=== PATIENT | female | born 1985 | race Caucasian/White ===

== ENCOUNTER 2017-10-08 12:12 | Emergency (ER) | payer MEDICAID ==
[~2017-10-08] VITALS: Ht 167.6 cm; Wt 81.6 kg
[~2017-10-08 12:12] MED LIST: ALB0.5V INH; BSP5T PO; CITA20TA4 PO; DCS100C PO; HYDR-3720 PO; IBP800T PO; METR500T PO; NAPR-243 PO; [UNRECOGNIZED DRUG - OTHER]
[2017-10-08] MEDS ORDERED: KETOROLAC 30 MG/ML VIAL IVP STA (13:38)
[2017-10-08] MEDS ORDERED: NS (IVPB) 250 ML IV ONE (13:38)
[2017-10-08 13:50] LABS: BILIRUBIN,URINE NEGATIVE (NEGATIVE); CLARITY,URINE SLIGHTLY CLOUDY; COLOR,URINE YELLOW; GLUCOSE, URINE (UA) NEGATIVE (NEGATIVE); KETONES,URINE NEGATIVE (NEGATIVE); LEUKOCYTE ESTERASE ,URINE 3+ (NEGATIVE); NITRITE,URINE POSITIVE (NEGATIVE); PH,URINE 6.5 (5-9); PROTEIN,URINE 2+ (NEGATIVE); UROBILINOGEN,URINE 1 MG/DL (NORMAL)
[2017-10-08 14:05] LABS: BACTERIA,URINE LARGE /HPF; WBC,URINE TNTC /HPF
[2017-10-08] MEDS ORDERED: NS IV 1000 ML 1,000 ML IV ONE (14:06)
[2017-10-08 14:22] LABS: BASOPHILS % (AUTO) 0 % (0-10); EOSINOPHILS # (AUTO) 0.2 10^3/uL (0.0-0.3); EOSINOPHILS % (AUTO) 2 % (0-10); HEMATOCRIT 35 % (35-52); HEMOGLOBIN 11.9 G/DL (11.5-16.0); LYMPHOCYTES # (AUTO) 1.8 X 10^3 (1.0-4.0); LYMPHOCYTES % (AUTO) 15 % (12-44); MEAN CORPUSCULAR HEMOGLOBIN 30 PG (25-34); MEAN CORPUSCULAR HGB CONC 34 G/DL (32-36); MEAN CORPUSCULAR VOLUME 88 FL (80-99); MEAN PLATELET VOLUME 9.2 FL (7.4-10.4); MONOCYTES # (AUTO) 1.4 X 10^3 (0.0-1.0); MONOCYTES % (AUTO) 12 % (0-12); NEUTROPHILS # (AUTO) 8.4 X 10^3 (1.8-7.8); NEUTROPHILS % (AUTO) 71 % (42-75); PLATELET COUNT 332 10^3/uL (130-400); RED BLOOD COUNT 3.97 10^6/uL (4.35-5.85); RED CELL DISTRIBUTION WIDTH 12.9 % (10.0-14.5); WHITE BLOOD COUNT 11.8 10^3/uL (4.3-11.0)
--- NOTE | 2017-10-08 14:33 | Diagnostic Imaging Report ---
INDICATION: Left flank pain Comparison: None Findings: 2 AP supine views of the abdomen are obtained. There is moderate amount of stool in the colon. The bowel gas pattern is otherwise unremarkable. No urinary tract calcifications are suspected. A couple of faint calcifications right pelvis are likely phleboliths. Osseous structures unremarkable. Impression: No acute abnormality is suspected. Dictated by: Dictated on workstation # [id number]
[2017-10-08 14:41] LABS: ALANINE AMINOTRANSFERASE 16 U/L (0-55); ALBUMIN 3.8 GM/DL (3.2-4.5); ALKALINE PHOSPHATASE 73 U/L (40-136); BILIRUBIN,TOTAL 0.4 MG/DL (0.1-1.0); BUN/CREATININE RATIO 11; CALCIUM 9.1 MG/DL (8.5-10.1); CARBON DIOXIDE 26 MMOL/L (21-32); CHLORIDE 103 MMOL/L (98-107); CREATININE SERUM 0.72 MG/DL (0.60-1.30); GFR ESTIMATED > 60; GLUCOSE 94 MG/DL (70-105); POTASSIUM 3.3 MMOL/L (3.6-5.0); SODIUM 138 MMOL/L (135-145); TOTAL PROTEIN 7.1 GM/DL (6.4-8.2)
[2017-10-08] MEDS ORDERED: cefTRIAXone INJECTION 2,000 MG in NS (IVPB) 100 ML IV ONE (14:45)
--- NOTE | 2017-10-08 14:49 | ED GU-Female ---
General Chief Complaint: Back Problems Stated Complaint: L SIDE PAIN Nursing Triage Note: PT CO OF L SIDE AND BACK PAIN X 3 DAYS PAIN GOES FROM 5-10 AT TIMES. Nursing Sepsis Screen: No Definite Risk History of Present Illness Date Seen by Provider: Oct 08, 2017 Time Seen by Provider: 13:30 Initial Comments 32-year-old female presents for left flank and lower abdomen pain. She reports dysuria and polyuria. She's had a history of UTIs, but the last one was approximately 2-3 years ago. She denies any blood in her urine. She has been drinking cranberry juice and increasing her water intake. She denies any nausea or vomiting. She has had no ibuprofen or Tylenol since symptoms began, she has not taken [id number] UTI medications. Timing/Duration: getting worse Severity/Quality: moderate Location: LLQ Radiation: suprapubic, left flank Modifying Factors: Improves With Resting, Improves With Urinating Associated Symptoms: dysuria, No fever/chills, No loss of bladder control, lower back pain, No nausea/vomiting (left), No nocturia, polyuria, urinary frequency Allergies and Home Medications Allergies Coded Allergies: NKANo Known Allergies (Unverified Allergy, Mild, 11/07/08) Home Medications Buspirone Hcl 5 Mg Tablet, 5 MG PO TID, (Reported) Ciprofloxacin HCl 500 Mg Tablet, 500 MG PO BID Prescribed by: KIM MO on 10/08/17 1540 Citalopram Hydrobromide 20 Mg Tab, 20 MG PO DAILY, (Reported) Docusate Sodium 100 Mg Capsule, 1 CAP PO DAILY PRN for CONSTIPATION Prescribed by: DOMINGO HOYOS on 01/19/14 0900 Hydrocodone Bit/Acetaminophen 1 Each Tablet, 1-2 TAB PO Q3H PRN for PAIN Prescribed by: DOMINGO HOYOS on 01/19/14 0900 Ibuprofen 800 Mg Tablet, 1 TAB PO Q6HR PRN for PAIN Prescribed by: DOMINGO HOYOS on 01/19/14 0900 Tramadol HCl 50 Mg Tablet, 50 MG PO Q8H Prescribed by: KIM MO on 10/08/17 1540 Patient Home Medication List Home Medication List Reviewed: Yes Constitutional: no symptoms reported, see HPI Gastrointestinal: LLQ, see HPI Genitourinary: see HPI, burning, dysuria, frequency, pain, urgency Musculoskeletal: see HPI, back pain (left flank) All Other Systemes Reviewed Negative Unless Noted: Yes Past Fsmozbv-Crvsjb-Xiuouq Hx Patient Social History Alcohol Use: Denies Use Recreational Drug Use: Yes (THC USED A WEEK AGO) Smoking Status: Never a Smoker Recent Foreign Travel: No Contact w/Someone Who Travel: No Recent Infectious Disease Expo: No Recent Hopitalizations: No Physical Abuse: No Sexual Abuse: No Surgeries History of Surgeries: Yes (2 D&C'S, DENTAL SURGERY) Surgeries: Hysterectomy Respiratory History of Respiratory Disorde: Yes Respiratory Disorders: Asthma Cardiovascular History of Cardiac Disorders: No Neurological History of Neurological Disord: No Reproductive System Hx Reproductive Disorders: Yes (MENORRHAGIA, PELVIC PAIN, UTERINE PROLAPSE) Female Reproductive Disorders: Endometriosis, Ovarian Cyst, Polycystic Ovarian Dis [employer] History: Tubal Ligation Gastrointestinal History of Gastrointestinal Di: No Musculoskeletal History of Musculoskeletal Dis: No Endocrine History of Endocrine Disorders: No Cancer History of Cancer: No Psychosocial History of Psychiatric Problem: Yes Behavioral Health Disorders: Personality Disorder Suicide Risk Score: 0 Integumentary History of Skin or Integumenta: No Blood Transfusions History of Blood Disorders: No Reviewed Nursing Assessment Reviewed/Agree w Nursing PMH: Yes Family Medical History Family Medial History: Patient reports no known family medical history. Physical Exam Vital Signs Vital Signs - First Documented 10/08/17 13:24 Temp 98.1 Pulse 78 Resp 18 B/P (MAP) 118/97 (104) Pulse Ox 100 Capillary Refill : Less Than 3 Seconds General Appearance: WD/WN, no apparent distress HEENT: PERRL/EOMI, normal ENT inspection, TMs normal, pharynx normal Neck: non-tender, full range of motion, supple, normal inspection Cardiovascular: normal peripheral pulses, regular rate, rhythm Respiratory: chest non-tender, lungs clear, normal breath sounds Gastrointestinal: normal bowel sounds, soft, No guarding, No rebound, tenderness (left lower quadrant) Back: normal inspection, no vertebral tenderness, CVA tenderness (L) Neurologic/Psychiatric: no motor/sensory deficits, alert, normal mood/affect, oriented x 3 Skin: normal color, warm/dry Progress/Results/Core Measures Suspected Sepsis Recent Fever Within 48 Hours: No Infection Criteria Present: None New/Unexplained Altered Menta: No Sepsis Screen: No Definite Risk Sepsis Diagnosis: SIRS Temperature:98.1 Pulse: 78 Respiratory Rate: 18 Laboratory Tests 10/08/17 14:10: White Blood Count 11.8H Blood Pressure 118 /97 Mean: 104 Laboratory Tests 10/08/17 14:10: Creatinine 0.72, Platelet Count 332, Total Bilirubin 0.4 Results/Orders Lab Results Laboratory Tests Test 10/08/17 13:24 10/08/17 14:10 Range/Units Urine Color YELLOW Urine Clarity SLIGHTLY CLOUDY Urine pH 6.5 5-9 Urine Specific [place] 1.010 L 1.016-1.022 Urine Protein 2+ H NEGATIVE Urine Glucose (UA) NEGATIVE NEGATIVE Urine Ketones NEGATIVE NEGATIVE Urine Nitrite POSITIVE H NEGATIVE Urine Bilirubin NEGATIVE NEGATIVE Urine Urobilinogen 1 NORMAL MG/DL Urine Leukocyte Esterase 3+ H NEGATIVE Urine RBC (Auto) 5+ H NEGATIVE Urine RBC NONE /HPF Urine WBC TNTC H /HPF Urine Squamous Epithelial Cells 5-10 /HPF Urine Crystals NONE /LPF Urine Bacteria LARGE H /HPF Urine Casts NONE /LPF Urine Mucus NEGATIVE /LPF Urine Culture Indicated YES White Blood Count 11.8 H 4.3-11.0 10^3/uL Red Blood Count 3.97 L 4.35-5.85 10^6/uL Hemoglobin 11.9 11.5-16.0 G/DL Hematocrit 35 35-52 % Mean Corpuscular Volume 88 80-99 FL Mean Corpuscular Hemoglobin 30 25-34 PG Mean Corpuscular Hemoglobin Concent 34 32-36 G/DL Red Cell Distribution Width 12.9 10.0-14.5 % Platelet Count 332 130-400 10^3/uL Mean Platelet Volume 9.2 7.4-10.4 FL Neutrophils (%) (Auto) 71 42-75 % Lymphocytes (%) (Auto) 15 12-44 % Monocytes (%) (Auto) 12 0-12 % Eosinophils (%) (Auto) 2 0-10 % Basophils (%) (Auto) 0 0-10 % Neutrophils # (Auto) 8.4 H 1.8-7.8 X 10^3 Lymphocytes # (Auto) 1.8 1.0-4.0 X 10^3 Monocytes # (Auto) 1.4 H 0.0-1.0 X 10^3 Eosinophils # (Auto) 0.2 0.0-0.3 10^3/uL Basophils # (Auto) 0.0 0.0-0.1 10^3/uL Sodium Level 138 135-145 MMOL/L Potassium Level 3.3 L 3.6-5.0 MMOL/L Chloride Level 103 98-107 MMOL/L Carbon Dioxide Level 26 21-32 MMOL/L Anion Gap 9 5-14 MMOL/L Blood Urea Nitrogen 8 7-18 MG/DL Creatinine 0.72 0.60-1.30 MG/DL Estimat Glomerular Filtration Rate > 60 BUN/Creatinine Ratio 11 Glucose Level 94 70-105 MG/DL Calcium Level 9.1 8.5-10.1 MG/DL Total Bilirubin 0.4 0.1-1.0 MG/DL Aspartate Amino Transf (AST/SGOT) 11 5-34 U/L Alanine Aminotransferase (ALT/SGPT) 16 0-55 U/L Alkaline Phosphatase 73 40-136 U/L Total Protein 7.1 6.4-8.2 GM/DL Albumin 3.8 3.2-4.5 GM/DL My Orders Orders - KIM MO Cbc With Automated Diff (10/08/17 13:38) Comprehensive Metabolic Panel (10/08/17 13:38) Ua Culture If Indicated (10/08/17 13:38) Saline Lock/Iv-Start (10/08/17 13:38) Ns (Ivpb) (Sodium Chloride 0.9%) (10/08/17 13:38) Ketorolac Injection (Toradol Injection) (10/08/17 13:38) Abdomen/Kub 1view (10/08/17 14:00) Urine Culture (10/08/17 13:24) Saline Lock/Iv-Start (10/08/17 14:06) Ns Iv 1000 Ml (Sodium Chloride 0.9%) (10/08/17 14:06) Ceftriaxone Injection (Rocephin Injectio (10/08/17 14:45) Medications Given in ED Current Medications Medications Dose Ordered Sig/Marcela Route Start Time Stop Time Status Last Admin Dose Admin Ceftriaxone Sodium 2000 mg/ Sodium Chloride 100 ml @ 200 mls/hr ONCE ONCE IV 10/08/17 14:45 10/08/17 15:14 DC 10/08/17 15:01 200 MLS/HR Sodium Chloride 1,000 ml @ 0 mls/hr Q0M ONCE IV 10/08/17 14:06 10/08/17 14:07 DC 10/08/17 14:10 1,000 MLS/HR Vital Signs/I&O Vital Sign - Last 12Hours 10/08/17 13:24 Temp 98.1 Pulse 78 Resp 18 B/P (MAP) 118/97 (104) Pulse Ox 100 Capillary Refill : Less Than 3 Seconds Blood Pressure Mean: 104 Diagnostic Imaging Diagonstic Imaging: Xray Plain Films/CT/US/NM/MRI: abdomen Comments NAME: BELEM RESENDIZ [facility] REC#: [id number] PT STATUS: REG ER : 1985 PHYSICIAN: KIM MO ADMIT DATE: 10/08/17/ER Draft Date of Exam:10/08/17 ABDOMEN/KUB 1VIEW INDICATION: Left flank pain Comparison: None Findings: 2 AP supine views of the abdomen are obtained. There is moderate amount of stool in the colon. The bowel gas pattern is otherwise unremarkable. No urinary tract calcifications are suspected. A couple of faint calcifications right pelvis are likely phleboliths. Osseous structures unremarkable. Impression: No acute abnormality is suspected. Dictated on workstation # [id number] Dict: 10/08/17 1427 Trans: 10/08/17 1432 BANNER [id number] Interpreted by: KAYLEIGH SON DO Electronically signed by: Departure Impression Impression: Primary Impression: Urinary tract infection Qualified Codes: N30.01 - Acute cystitis with hematuria Disposition: HOME, SELF-CARE Condition: Improved Departure-Patient Inst. Decision time for Depature: 15:30 Referrals: NO,LOCAL PHYSICIAN (PCP/Family) Primary Care Physician Patient Instructions: Urinary Tract Infection, Adult (DC) Add. Discharge Instructions: Increase water intake, one bottle every 2 hours while awake. Drink 1-2 glasses of cranberry juice daily. Empty bladder every 2 hours while awake. Antibiotic as prescribed. Establish with a primary care provider. Return to emergency department for increased low back pain, fever greater than 101, new problems or concerns. You may take Tylenol 650 mg alternating with ibuprofen 600 mg every 4 hours. Use tramadol for severe pain only. All discharge instructions reviewed with patient and/or family. Voiced understanding. Scripts Tramadol HCl (Tramadol HCl) 50 Mg Tablet 50 MG PO Q8H, #12 TAB 0 Refills Prov: KIM MO 10/08/17 Ciprofloxacin HCl (Cipro) 500 Mg Tablet 500 MG PO BID, #14 TAB 0 Refills Prov: KIM MO 10/08/17 KIM MO Oct 08, 2017 14:49
[2017-10-08] MEDS ORDERED: TRAM50TA2 PO (15:40)
[2017-10-08] MEDS ORDERED: CIPR-225 PO (15:40)
[2017-10-08 15:52] VITALS: BP 118/97
--- OUTSIDE RECORDS SUMMARY | 2017-10-09 10:00 | XMS REPORT | Referral Summary ---
Author Author [facility] Organization [facility] Address Unknown Phone Unavailable Care Team Providers Care Legal Executive Name Role Phone No PCP, Pt States PCP Encounter VC Date(s): 07/10/16 - 07/10/16 [facility] [address] [place] [address] [facility] Discharge Diagnosis: Gastroenteritis Discharge Disposition: 01-Home or Self Care Attending Physician: Janice Santana APRN Attending Physician: Provider, Immediate Care Admitting Physician: Provider, Immediate Care Vital Signs Most recent to 1 oldest [Reference Range]: Temperature Oral 36.8 degC [35.8-37.3 degC] (07/10/16 1:25 PM) Peripheral Pulse 77 bpm Rate [60-100 bpm] (07/10/16 1:25 PM) Blood Pressure 144/93 mmHg [90-140/60-90 mmHg] *HI* (07/10/16 1:25 PM) SpO2 98 % (07/10/16 1:25 PM) Problem List No data available for this section Allergies, Adverse Reactions, Alerts No Known Medication Allergies Medications predniSONE Oral, Daily, 0 Refill(s) Start Date: 07/10/16 Status: Ordered ProAir RespiClick puffs, Inhalation, q4hr, 0 Refill(s) Start Date: 07/10/16 Status: Ordered Zofran ODT 4 mg oral tablet, disintegrating 4 mg 1 tabs, Oral, q6hr, Nausea or Vomiting | as needed for nausea/vomiting, # 10 tabs, 0 Refill(s), Pharmacy: [facility] [id number], 1 tabs Oral q6hr,PRN :Nausea or Vomiting | as needed for nausea/vomiting Start Date: 07/10/16 Status: Ordered Results No data available for this section Immunizations No data available for this section Procedures No data available for this section Social History Social History Type Response Smoking Status Current every day smoker Assessment and Plan Extracted from: Title: Office Visit Note Author: Janice Santana APRN Date: 07/10/16"
--- OUTSIDE RECORDS SUMMARY | 2017-10-09 10:00 | XMS REPORT | Continuity of Care Document ---
Demographics Preferred Language Unknown Marital Status Unknown Buddhism Affiliation Unknown Race Unknown Ethnic Group Unknown Author Author [facility] Address Unknown Phone Unavailable Allergies Active Description Code Type Severity Reaction Onset Reported/Identified Relationship to Patient Clinical Status Yes No Known Allergies No Known Allergies Drug Allergy Unknown N/A 2014 Medications There is no data. Problems Date Dx Coded Attending Type Code Diagnosis Diagnosed By 07/15/2009 300.00 ANXIETY DISORDER NOS 07/15/2009 493.90 ASTHMA Procedures There is no data. <section xmlns="urn:hl7-org:v3" xmlns:xsi="http:// www.[employer].org/2001/XMLSchema-instance"> <templateId root= "2.16.840.1.207651.10.20.22.2.3" /> <templateId root= "2.16.840.1.502092.10.20.22.2.3.1" /> <code codeSystemName="LOINC" codeSystem= "2.16.840.1.235126.6.1" code="19976-6" displayName="Results" /> <title>Results< /title> <text> <table> <thead> <tr> <th>Test</th> <th>Result</th> <th>Range</th> </tr> </thead> < tbody> <tr> <th colspan="10">URINALYSIS, ROUTINE - 04/30/15 11: 25</th> </tr> <tr> <td>UA LEUKOCYTE ESTERASE DIPSTICK</td > <td>2+ </td> <td>NEGATIVE</td> </tr> <tr> <td>UA NITRITE DIPSTICK</td> <td>POSITIVE </td> <td> NEGATIVE</td> </tr> <tr> <td>UA PROTEIN DIPSTICK</td> <td>3+ </td> <td>NEGATIVE</td> </tr> <tr> <td>UA GLUCOSE DIPSTICK</td> <td>NEGATIVE </td> <td>NEGATIVE </td> </tr> <tr> <td>UA KETONE DIPSTICK</td> <td >NEGATIVE </td> <td>NEGATIVE</td> </tr> <tr> <td >UA UROBILINOGEN DIPSTICK</td> <td>NORMAL </td> <td>NORMAL</td > </tr> <tr> <td>UA BILIRUBIN DIPSTICK</td> <td> NEGATIVE </td> <td>NEGATIVE</td> </tr> <tr> <td> UA BLOOD DIPSTICK</td> <td>4+ </td> <td>NEGATIVE</td> < /tr> <tr> <td>UA SPECIFIC GRAVITY</td> <td>1.010 </td> <td>1.015-1.025</td> </tr> <tr> <td>UR PH</td> <td>6.0 </td> <td>5.0-7.0</td> </tr> <tr> <td>Microbiology</td> <td> </td> <td /> </tr> <tr> < colspan="10">UA MICROSCOPIC - 04/30/15 11:25</th> < /tr> <tr> <td>UA BACTERIA</td> <td>5+ </td> < td>NEGATIVE</td> </tr> <tr> <td>UA EPITHELIAL CELLS</td> <td>3+ epi/hpf</td> <td>0 - 1+</td> </tr> <tr> <td>UA MUCUS</td> <td>3+ </td> <td>NEG TO 1+</td> </tr> <tr> <td>UA RBC</td> <td>20-50 rbc/hpf</td > <td>0 - 3</td> </tr> <tr> <td>UA VOLUME FOR EXAM</td> <td>7.0 mL</td> <td>(12mL STD)</td> </tr> <tr> <td>UA WBC</td> <td>PACKED FIELD wbc/hpf</td> <td>0 - 5</td> </tr> <tr> <th colspan="10">CBC W/ DIFF - 05/02/15 03:23</th> </tr> <tr> <td>COMMENT</td> <td>REVIEWED </td> <td /> </tr> <tr> <td >EOSINOPHIL #</td> <td>0.1 k/cumm</td> <td>0.1-0.5</td> </tr> <tr> <td>EOSINOPHIL %</td> <td>1 %</td > <td>2-4</td> </tr> <tr> <td>GRANULOCYTE #</td > <td>8.3 k/cumm</td> <td>2.0-9.0</td> </tr> <tr > <td>GRANULOCYTE %</td> <td>74 %</td> <td>50 -75</td> </tr> <tr> <td>LYMPHOCYTE #</td> <td> 1.0 k/cumm</td> <td>1.0-4.0</td> </tr> <tr> <td> LYMPHOCYTE %</td> <td>9 %</td> <td>20-30</td> < /tr> <tr> <td>MEAN CELL HGB</td> <td>30.5 pg</td> <td>27.0-33.0</td> </tr> <tr> <td>MEAN CELL HGB CONCENTRATION</td> <td>34.6 g/dL</td> <td>32.0-37.0</td> </tr> <tr> <td>MEAN CELL VOLUME</td> <td>88.2 fl</td > <td>80.0-100.0</td> </tr> <tr> <td>MONOCYTE #< /td> <td>1.8 k/cumm</td> <td>0.1-1.0</td> </tr> <tr> <td>MONOCYTE %</td> <td>16 %</td> <td>4- 6</td> </tr> <tr> <td>RED BLOOD CELL</td> <td> 3.90 m/cumm</td> <td>4.00-6.00</td> </tr> <tr> < td>RED CELL DISTRIBUTION WIDTH</td> <td>12.8 %</td> <td> 11.0-15.6</td> </tr> <tr> <td>WHITE BLOOD CELL</td> <td>11.2 k/cumm</td> <td>5.0-10.0</td> </tr> <tr> <td>HEMOGLOBIN</td> <td>11.9 gm/dL</td> <td>12.0-16.0< /td> </tr> <tr> <td>HEMATOCRIT</td> <td>34.4 &# 37;</td> <td>37.0-47.0</td> </tr> <tr> <td> PLATELET COUNT</td> <td>270 k/cumm</td> <td>150-450</td> </tr> <tr> <td>Microbiology</td> <td> </td> <td /> </tr> <tr> <th colspan="10">METABOLIC PANEL, COMPREHN - 05/02/15 03:23</th> </tr> <tr> <td>POTASSIUM</ td> <td>3.6 mmol/L</td> <td>3.5-5.3</td> </tr> < tr> <td>EST GFR (MDRD)</td> <td>> 60 mL/min</td> < td>> 59</td> </tr> <tr> <td>ANION GAP</td> < td>15 mmol/L</td> <td>5-15</td> </tr> <tr> <td> EST CrCl (CG)</td> <td>> 60 mL/min</td> <td>> 59</td> </tr> <tr> <td>GLUCOSE</td> <td>106 mg/dL</td> <td>70-99</td> </tr> <tr> <td>CALCIUM</td> <td>9.0 mg/dL</td> <td>8.5-10.1</td> </tr> <tr> <td>BLOOD UREA NITROGEN</td> <td>7 mg/dL</td> <td>7-20</ td> </tr> <tr> <td>CREATININE</td> <td>0.8 mg/dL </td> <td>0.6-1.0</td> </tr> <tr> <td>SODIUM</td > <td>136 mmol/L</td> <td>135-148</td> </tr> <tr > <td>CHLORIDE</td> <td>100 mmol/L</td> <td>98-110</ td> </tr> <tr> <td>AST/SGOT</td> <td>34 Units/L< /td> <td>10-37</td> </tr> <tr> <td>ALT/SGPT</td > <td>34 Units/L</td> <td>< 66</td> </tr> <tr > <td>CARBON DIOXIDE</td> <td>21 mmol/L</td> <td>21- 32</td> </tr> <tr> <td>TOTAL PROTEIN</td> <td> 7.7 gm/dL</td> <td>6.4-8.2</td> </tr> <tr> <td> ALBUMIN</td> <td>3.2 gm/dL</td> <td>3.4-5.0</td> </tr> <tr> <td>BILI TOTAL</td> <td>0.3 mg/dL</td> < td>0.0-1.0</td> </tr> <tr> <td>ALKALINE PHOSPHATASE TOTAL </td> <td>88 IU/L</td> <td>45-117</td> </tr> <tr > <td>Microbiology</td> <td> </td> <td /> </tr > <tr> < colspan="10">LIPASE - 05/02/15 03:23</th> </tr > <tr> <td>LIPASE</td> <td>114 Units/L</td> < td>73-393</td> </tr> <tr> < colspan="10">URINALYSIS, ROUTINE - 05/16/15 13:00</th> </tr> <tr> <td>UA LEUKOCYTE ESTERASE DIPSTICK</td> <td>1+ </td> <td>NEGATIVE</td > </tr> <tr> <td>UA NITRITE DIPSTICK</td> <td> NEGATIVE </td> <td>NEGATIVE</td> </tr> <tr> <td> UA PROTEIN DIPSTICK</td> <td>NEGATIVE </td> <td>NEGATIVE</td> </tr> <tr> <td>UA GLUCOSE DIPSTICK</td> <td> NEGATIVE </td> <td>NEGATIVE</td> </tr> <tr> <td> UA KETONE DIPSTICK</td> <td>NEGATIVE </td> <td>NEGATIVE</td> </tr> <tr> <td>UA UROBILINOGEN DIPSTICK</td> <td >NORMAL </td> <td>NORMAL</td> </tr> <tr> <td>UA BILIRUBIN DIPSTICK</td> <td>NEGATIVE </td> <td>NEGATIVE</td> </tr> <tr> <td>UA BLOOD DIPSTICK</td> <td>1+ </ td> <td>NEGATIVE</td> </tr> <tr> <td>UA SPECIFIC GRAVITY</td> <td>1.010 </td> <td>1.015-1.025</td> </tr> <tr> <td>UR PH</td> <td>7.0 </td> < td>5.0-7.0</td> </tr> <tr> <th colspan="10">UA MICROSCOPIC - 05/16/15 13:00</th> </tr> <tr> <td>UA BACTERIA</td> <td>1+ </td> <td>NEGATIVE</td> </tr> <tr> <td>UA EPITHELIAL CELLS</td> <td>2+ epi/hpf</td> <td>0 - 1+</td> </tr> <tr> <td>UA RBC</td> <td>5-10 rbc/hpf</td> <td>0 - 3</td> </tr> <tr> <td>UA VOLUME FOR EXAM</td> <td>12.0 mL</td> <td>(12mL STD) </td> </tr> <tr> <td>UA WBC</td> <td>20-50 wbc/ hpf</td> <td>0 - 5</td> </tr> <tr> < colspan= "10">UR TEST - 05/16/15 13:00</th> </tr> <tr> < td>UR TEST</td> <td>NEGATIVE </td> <td>NEGATIVE</td > </tr> <tr> <th colspan="10">URINE CULTURE - 05/16/15 13 :00</th> </tr> <tr> <td>Microbiology</td> <td> < /td> <td /> </tr> <tr> < colspan="10"> GONORRHOEA DNA BY PCR - CHLAMYDIA DNA BY PCR - 05/16/15 13:00</th> </tr> <tr> <td>Microbiology</td> <td> </td> <td /> </tr> <tr> < colspan="10">WET MOUNT - 05/16/15 13:20</ th> </tr> <tr> <td>Microbiology</td> <td> </td> <td /> </tr> <tr> <th colspan="10">GRAM STAIN - CHLAMYDIA DNA BY PCR - 05/16/15 13:20</th> </tr> <tr> < td>Microbiology</td> <td> </td> <td /> </tr> </ tbody> </table> </text> <entry> <organizer moodCode="EVN" classCode= "BATTERY"> <templateId root="216.840.1.440098.10.20.22.4.1" /> <id nullFlavor="NA" /> <code codeSystem="local" code="UA" displayName= "URINALYSIS, ROUTINE" /> <statusCode code="completed" /> <component> <observation moodCode="EVN" classCode="OBS"> <templateId root= "216.840.1.673502.10.20.22.4.2" /> <id nullFlavor="NA" /> < code codeSystem="local" code="LEUESU" displayName="UA LEUKOCYTE ESTERASE DIPSTICK" /> <statusCode code="completed" /> <effectiveTime value="502429155177" /> <value unit="" xsi:type="PQ" value="2+" /> <interpretationCode codeSystem="local" code="*" /> < referenceRange> <observationRange> <text>NEGATIVE</text > </observationRange> </referenceRange> </observation > </component> <component> <observation moodCode="EVN" classCode="OBS"> <templateId root="216.840.1.317193.10.20.22.4.2" /> <id nullFlavor="NA" /> <code codeSystem="local" code="NITRIU" displayName="UA NITRITE DIPSTICK" /> <statusCode code="completed" /> <effectiveTime value="184089982320" /> <value unit="" xsi:type= "PQ" value="POSITIVE" /> <interpretationCode codeSystem="local" code="* " /> <referenceRange> <observationRange> <text> NEGATIVE</text> </observationRange> </referenceRange> </observation> </component> <component> <observation moodCode ="EVN" classCode="OBS"> <templateId root= "216.840.1.970087.10..22.4.2" /> <id nullFlavor="NA" /> < code codeSystem="local" code="PROTEIU" displayName="UA PROTEIN DIPSTICK" /> <statusCode code="completed" /> <effectiveTime value= "673137978046" /> <value unit="" xsi:type="PQ" value="3+" /> < interpretationCode codeSystem="local" code="*" /> <referenceRange> <observationRange> <text>NEGATIVE</text> </ observationRange> </referenceRange> </observation> </ component> <component> <observation moodCode="EVN" classCode="OBS"> <templateId root="216.840.1.141532.10..22.4.2" /> <id nullFlavor="NA" /> <code codeSystem="local" code="DGLUU" displayName= "UA GLUCOSE DIPSTICK" /> <statusCode code="completed" /> < effectiveTime value="251549563200" /> <value unit="" xsi:type="PQ" value="NEGATIVE" /> <referenceRange> <observationRange> <text>NEGATIVE</text> </observationRange> </ referenceRange> </observation> </component> <component> <observation moodCode="EVN" classCode="OBS"> <templateId root= "216.840.1.838322.10.22.4.2" /> <id nullFlavor="NA" /> < code codeSystem="local" code="KETONU" displayName="UA KETONE DIPSTICK" /> <statusCode code="completed" /> <effectiveTime value="659917480167 " /> <value unit="" xsi:type="PQ" value="NEGATIVE" /> < referenceRange> <observationRange> <text>NEGATIVE</text > </observationRange> </referenceRange> </observation > </component> <component> <observation moodCode="EVN" classCode="OBS"> <templateId root="16.840.1.781194.05.20.22.4.2" /> <id nullFlavor="NA" /> <code codeSystem="local" code="UROBILU " displayName="UA UROBILINOGEN DIPSTICK" /> <statusCode code="completed " /> <effectiveTime value="366073056752" /> <value unit="" xsi :type="PQ" value="NORMAL" /> <referenceRange> < observationRange> <text>NORMAL</text> </observationRange > </referenceRange> </observation> </component> < component> <observation moodCode="EVN" classCode="OBS"> < templateId root="16.840.1.765058.10.4.2" /> <id nullFlavor="NA " /> <code codeSystem="local" code="BILU" displayName="UA BILIRUBIN DIPSTICK" /> <statusCode code="completed" /> <effectiveTime value="236542521872" /> <value unit="" xsi:type="PQ" value="NEGATIVE" / > <referenceRange> <observationRange> <text> NEGATIVE</text> </observationRange> </referenceRange> </observation> </component> <component> <observation moodCode ="EVN" classCode="OBS"> <templateId root= "216.840.1.620047.22.4.2" /> <id nullFlavor="NA" /> < code codeSystem="local" code="VIKAS" displayName="UA BLOOD DIPSTICK" /> < statusCode code="completed" /> <effectiveTime value="351304635017" /> <value unit="" xsi:type="PQ" value="4+" /> < interpretationCode codeSystem="local" code="*" /> <referenceRange> <observationRange> <text>NEGATIVE</text> </ observationRange> </referenceRange> </observation> </ component> <component> <observation moodCode="EVN" classCode="OBS"> <templateId root="16.840.1.877646.05.20.224.2" /> <id nullFlavor="NA" /> <code codeSystem="local" code="SPGRU" displayName= "UA SPECIFIC GRAVITY" /> <statusCode code="completed" /> < effectiveTime value="532385954809" /> <value unit="" xsi:type="PQ" value="1.010" /> <interpretationCode codeSystem="local" code="*" /> <referenceRange> <observationRange> <text>1.015- 1.025</text> </observationRange> </referenceRange> </ observation> </component> <component> <observation moodCode= "EVN" classCode="OBS"> <templateId root="216.840.1.890932.1022.4.2 " /> <id nullFlavor="NA" /> <code codeSystem="local" code="GEOVANNA " displayName="UR PH" /> <statusCode code="completed" /> < effectiveTime value="141747273907" /> <value unit="" xsi:type="PQ" value="6.0" /> <referenceRange> <observationRange> <text>5.0-7.0</text> </observationRange> </ referenceRange> </observation> </component> <component> <observation moodCode="EVN" classCode="OBS"> <templateId root= "16.840.1.573354...22.4.2" /> <id nullFlavor="NA" /> < code codeSystem="local" code="MB" displayName="Microbiology" /> < statusCode code="completed" /> <effectiveTime value="334789937823" /> <value unit="" xsi:type="PQ" value="" /> <referenceRange> <observationRange> <text /> </observationRange> </referenceRange> </observation> </component> </ organizer> </entry> <entry> <organizer moodCode="EVN" classCode="BATTERY"> <templateId root="16.840.1.123525....4.1" /> <id nullFlavor= "NA" /> <code codeSystem="local" code="UAMICRO" displayName="UA MICROSCOPIC " /> <statusCode code="completed" /> <component> <observation moodCode="EVN" classCode="OBS"> <templateId root= "16.840.1.233926.10..22.4.2" /> <id nullFlavor="NA" /> < code codeSystem="local" code="BACU" displayName="UA BACTERIA" /> < statusCode code="completed" /> <effectiveTime value="354728534651" /> <value unit="" xsi:type="PQ" value="5+" /> < interpretationCode codeSystem="local" code="*" /> <referenceRange> <observationRange> <text>NEGATIVE</text> </ observationRange> </referenceRange> </observation> </ component> <component> <observation moodCode="EVN" classCode="OBS"> <templateId root="09.16.840.1.948842.10.20.22.4.2" /> <id nullFlavor="NA" /> <code codeSystem="local" code="EPIU" displayName=" UA EPITHELIAL CELLS" /> <statusCode code="completed" /> < effectiveTime value="939346668002" /> <value unit="epi/hpf" xsi:type= "PQ" value="3+" /> <interpretationCode codeSystem="local" code="*" /> <referenceRange> <observationRange> <text>0 - 1 +</text> </observationRange> </referenceRange> </ observation> </component> <component> <observation moodCode= "EVN" classCode="OBS"> <templateId root="840.1.824625...4.2 " /> <id nullFlavor="NA" /> <code codeSystem="local" code= "MUCUSU" displayName="UA MUCUS" /> <statusCode code="completed" /> <effectiveTime value="814323622051" /> <value unit="" xsi:type= "PQ" value="3+" /> <interpretationCode codeSystem="local" code="*" /> <referenceRange> <observationRange> <text>NEG TO 1+</text> </observationRange> </referenceRange> </ observation> </component> <component> <observation moodCode= "EVN" classCode="OBS"> <templateId root="09.16.840.1.272534.10.2022.4.2 " /> <id nullFlavor="NA" /> <code codeSystem="local" code= "RBCU" displayName="UA RBC" /> <statusCode code="completed" /> <effectiveTime value="264377331315" /> <value unit="rbc/hpf" xsi:type ="PQ" value="20-50" /> <interpretationCode codeSystem="local" code="*" /> <referenceRange> <observationRange> <text>0 - 3</text> </observationRange> </referenceRange> </ observation> </component> <component> <observation moodCode= "EVN" classCode="OBS"> <templateId root="2.16.840.1.228435.10..22.4.2 " /> <id nullFlavor="NA" /> <code codeSystem="local" code= "UAVOL" displayName="UA VOLUME FOR EXAM" /> <statusCode code="completed " /> <effectiveTime value="173053962312" /> <value unit="mL" xsi:type="PQ" value="7.0" /> <referenceRange> < observationRange> <text>(12mL STD)</text> </ observationRange> </referenceRange> </observation> </ component> <component> <observation moodCode="EVN" classCode="OBS"> <templateId root="2.16.840.1.832722.10.20.22.4.2" /> <id nullFlavor="NA" /> <code codeSystem="local" code="WBCU" displayName=" UA WBC" /> <statusCode code="completed" /> <effectiveTime value="844613387542" /> <value unit="wbc/hpf" xsi:type="PQ" value= "PACKED FIELD" /> <interpretationCode codeSystem="local" code="*" /> <referenceRange> <observationRange> <text>0 - 5< /text> </observationRange> </referenceRange> </ observation> </component> </organizer> </entry> <entry> <organizer moodCode="EVN" classCode="BATTERY"> <templateId root= "2.16.840.1.256234.10..22.4.1" /> <id nullFlavor="NA" /> <code codeSystem="local" code="CBCD" displayName="CBC W/DIFF" /> <statusCode code ="completed" /> <component> <observation moodCode="EVN" classCode= "OBS"> <templateId root="216.840.1.415870.10...4.2" /> < id nullFlavor="NA" /> <code codeSystem="local" code="CBCCOM" displayName="COMMENT" /> <statusCode code="completed" /> < effectiveTime value="226198179425" /> <value xsi:type="ST" value="<pre> <b>CBC W/DIFF</b> 06.23.9011.934.488.230.534.612.67957318156.31.08.79.1REVIEWED< /pre>" /> <referenceRange> <observationRange> < text /> </observationRange> </referenceRange> </ observation> </component> <component> <observation moodCode= "EVN" classCode="OBS"> <templateId root="2.16.840.1.249688.10...4.2 " /> <id nullFlavor="NA" /> <code codeSystem="local" code="EO# " displayName="EOSINOPHIL #" /> <statusCode code="completed" /> <effectiveTime value="300057299075" /> <value xsi:type="ST" value="< pre><b>CBC W/DIFF</b> 06.23.9011.934.488.230.534.612.48400843232.31.08.79.1REVIEWED</pre>" /> <referenceRange> <observationRange> <text>0.1-0.5</ text> </observationRange> </referenceRange> </ observation> </component> <component> <observation moodCode= "EVN" classCode="OBS"> <templateId root="216.840.1.476926.10..22.4.2 " /> <id nullFlavor="NA" /> <code codeSystem="local" code="EO& #37;" displayName="EOSINOPHIL %" /> <statusCode code="completed" / > <effectiveTime value="050081390324" /> <value xsi:type="ST" value="<pre><b>CBC W/DIFF</b> 06.23.9011.934.488.230.534.612.53879114895.31.08.79.1REVIEWED</pre>" /> <interpretationCode codeSystem="local" code="*" /> <referenceRange> <observationRange> <text>2-4</text> </ observationRange> </referenceRange> </observation> </ component> <component> <observation moodCode="EVN" classCode="OBS"> <templateId root="2.16.840.1.587484.10..22.4.2" /> <id nullFlavor="NA" /> <code codeSystem="local" code="GR#" displayName= "GRANULOCYTE #" /> <statusCode code="completed" /> < effectiveTime value="104834136803" /> <value xsi:type="ST" value="<pre> <b>CBC W/DIFF</b> 06.23.9011.934.488.230.534.612.67505026911.80.1REVIEWED< /pre>" /> <referenceRange> <observationRange> < text>2.0-9.0</text> </observationRange> </referenceRange> </observation> </component> <component> <observation moodCode="EVN" classCode="OBS"> <templateId root= "2.16.840.1.463533.10.20.22.4.2" /> <id nullFlavor="NA" /> < code codeSystem="local" code="GR%" displayName="GRANULOCYTE %" /> <statusCode code="completed" /> <effectiveTime value="550121795017 " /> <value xsi:type="ST" value="<pre><b>CBC W/DIFF</b> 06.23.9011.934.488.230.534.612.08417627821.31.08.79.1REVIEWED</pre>" /> <referenceRange> <observationRange> <text>50-75</text > </observationRange> </referenceRange> </observation > </component> <component> <observation moodCode="EVN" classCode="OBS"> <templateId root="2.16.840.1.248991.10.20.22.4.2" /> <id nullFlavor="NA" /> <code codeSystem="local" code="LY#" displayName="LYMPHOCYTE #" /> <statusCode code="completed" /> <effectiveTime value="270251911071" /> <value xsi:type="ST" value="<pre ><b>CBC W/DIFF</b> 06.23.9011.934.488.230.534.612.69840868982.31.08.79.1REVIEWED </pre>" /> <referenceRange> <observationRange> <text>1.0-4.0</text> </observationRange> </referenceRange> </observation> </component> <component> <observation moodCode="EVN" classCode="OBS"> <templateId root= "2.16.840.1.517071.10..22.4.2" /> <id nullFlavor="NA" /> < code codeSystem="local" code="LY%" displayName="LYMPHOCYTE %" /> <statusCode code="completed" /> <effectiveTime value="941932941216" /> <value xsi:type="ST" value="<pre><b>CBC W/DIFF</b> 06.23.9011.934.488.230.534.612.72891107337.31.08.79.1REVIEWED</pre>" /> <interpretationCode codeSystem="local" code="*" /> <referenceRange> <observationRange> <text>20-30</text> </ observationRange> </referenceRange> </observation> </ component> <component> <observation moodCode="EVN" classCode="OBS"> <templateId root="2.16.840.1.006378.10..4.2" /> <id nullFlavor="NA" /> <code codeSystem="local" code="MCH" displayName= "MEAN CELL HGB" /> <statusCode code="completed" /> < effectiveTime value="977277230988" /> <value xsi:type="ST" value="<pre> <b>CBC W/DIFF</b> 06.23.9011.934.488.230.534.612.94276255201.31.08.79.1REVIEWED< /pre>" /> <referenceRange> <observationRange> < text>27.0-33.0</text> </observationRange> </referenceRange> </observation> </component> <component> <observation moodCode="EVN" classCode="OBS"> <templateId root= "2.16.840.1.172724.10.204.2" /> <id nullFlavor="NA" /> < code codeSystem="local" code="[facility]" displayName="MEAN CELL HGB CONCENTRATION" / > <statusCode code="completed" /> <effectiveTime value= "[id number]" /> <value xsi:type="ST" value="<pre><b>CBC W/DIFF</b> 06.23.9011.934.488.230.534.612.28985515445.31.08.79.1REVIEWED</pre>" /> <referenceRange> <observationRange> <text>32.0-37.0</ text> </observationRange> </referenceRange> </ observation> </component> <component> <observation moodCode= "EVN" classCode="OBS"> <templateId root="2.16.840.1.298328.10.4.2 " /> <id nullFlavor="NA" /> <code codeSystem="local" code="MCV " displayName="MEAN CELL VOLUME" /> <statusCode code="completed" /> <effectiveTime value="[id number]" /> <value xsi:type="ST" value="<pre><b>CBC W/DIFF</b> 06.23.9011.934.488.230.534.612.19815133257.31.08.79.1REVIEWED</pre>" /> <referenceRange> <observationRange> <text>80.0-100.0</ text> </observationRange> </referenceRange> </ observation> </component> <component> <observation moodCode= "EVN" classCode="OBS"> <templateId root="216.840.1.095214.10..4.2 " /> <id nullFlavor="NA" /> <code codeSystem="local" code="MO# " displayName="MONOCYTE #" /> <statusCode code="completed" /> <effectiveTime value="[id number]" /> <value xsi:type="ST" value="<pre ><b>CBC W/DIFF</b> 06.23.9011.934.488.230.534.612.37131616767.31.08.79.1REVIEWED </pre>" /> <interpretationCode codeSystem="local" code="*" /> <referenceRange> <observationRange> <text>0.1-1.0</text > </observationRange> </referenceRange> </observation > </component> <component> <observation moodCode="EVN" classCode="OBS"> <templateId root="2.16.840.1.726607.10..22.4.2" /> <id nullFlavor="NA" /> <code codeSystem="local" code="MO% " displayName="MONOCYTE %" /> <statusCode code="completed" /> <effectiveTime value="[id number]" /> <value xsi:type="ST" value= "<pre><b>CBC W/DIFF</b> 06.23.9011.934.488.230.534.612.43287767980.31.08.79.1REVIEWED</pre>" /> <interpretationCode codeSystem="local" code="*" /> <referenceRange> <observationRange> <text>4-6</text> </ observationRange> </referenceRange> </observation> </ component> <component> <observation moodCode="EVN" classCode="OBS"> <templateId root="2.16.840.1.455072.10.20.22.4.2" /> <id nullFlavor="NA" /> <code codeSystem="local" code="RBC" displayName=" RED BLOOD CELL" /> <statusCode code="completed" /> < effectiveTime value="[id number]" /> <value xsi:type="ST" value="<pre> <b>CBC W/DIFF</b> 06.23.9011.934.488.230.534.612.06931501364.31.08.79.1REVIEWED< /pre>" /> <interpretationCode codeSystem="local" code="*" /> < referenceRange> <observationRange> <text>4.00-6.00</text > </observationRange> </referenceRange> </observation > </component> <component> <observation moodCode="EVN" classCode="OBS"> <templateId root="2.16.840.1.183935.10...4.2" /> <id nullFlavor="NA" /> <code codeSystem="local" code="RDW" displayName="RED CELL DISTRIBUTION WIDTH" /> <statusCode code= "completed" /> <effectiveTime value="[id number]" /> <value xsi:type="ST" value="<pre><b>CBC W/DIFF</b> 06.23.9011.934.488.230.534.612.73395808437.31.08.79.1REVIEWED</pre>" /> <referenceRange> <observationRange> <text>11.0-15.6</ text> </observationRange> </referenceRange> </ observation> </component> <component> <observation moodCode= "EVN" classCode="OBS"> <templateId root="2.16.840.1.568313.10...4.2 " /> <id nullFlavor="NA" /> <code codeSystem="local" code="WBC " displayName="WHITE BLOOD CELL" /> <statusCode code="completed" /> <effectiveTime value="[id number]" /> <value xsi:type="ST" value="<pre><b>CBC W/DIFF</b> 06.23.9011.934.488.230.534.612.94281923428.31.08.79.1REVIEWED</pre>" /> <interpretationCode codeSystem="local" code="*" /> <referenceRange> <observationRange> <text>5.0-10.0</text> </ observationRange> </referenceRange> </observation> </ component> <component> <observation moodCode="EVN" classCode="OBS"> <templateId root="2.16.840.1.137366.10.20.22.4.2" /> <id nullFlavor="NA" /> <code codeSystem="local" code="HGBT" displayName= "HEMOGLOBIN" /> <statusCode code="completed" /> < effectiveTime value="[id number]" /> <value xsi:type="ST" value="<pre> <b>CBC W/DIFF</b> 06.23.9011.934.488.230.534.612.84064865416.31.08.79.1REVIEWED< /pre>" /> <interpretationCode codeSystem="local" code="*" /> < referenceRange> <observationRange> <text>12.0-16.0</text > </observationRange> </referenceRange> </observation > </component> <component> <observation moodCode="EVN" classCode="OBS"> <templateId root="2.16.840.1.877573.10.20.22.4.2" /> <id nullFlavor="NA" /> <code codeSystem="local" code="HCTT" displayName="HEMATOCRIT" /> <statusCode code="completed" /> < effectiveTime value="[id number]" /> <value xsi:type="ST" value="<pre> <b>CBC W/DIFF</b> 06.23.9011.934.488.230.534.612.80509834001.31.08.79.1REVIEWED< /pre>" /> <interpretationCode codeSystem="local" code="*" /> < referenceRange> <observationRange> <text>37.0-47.0</text > </observationRange> </referenceRange> </observation > </component> <component> <observation moodCode="EVN" classCode="OBS"> <templateId root="2.16.840.1.802896.10..22.4.2" /> <id nullFlavor="NA" /> <code codeSystem="local" code="PLT" displayName="PLATELET COUNT" /> <statusCode code="completed" /> <effectiveTime value="555356927511" /> <value xsi:type="ST" value="< pre><b>CBC W/DIFF</b> 06.23.9011.934.488.230.534.612.65143571574.31.08.79.1REVIEWED</pre>" /> <referenceRange> <observationRange> <text>150-450</ text> </observationRange> </referenceRange> </ observation> </component> <component> <observation moodCode= "EVN" classCode="OBS"> <templateId root="2.16.840.1.162013.10..4.2 " /> <id nullFlavor="NA" /> <code codeSystem="local" code="MB " displayName="Microbiology" /> <statusCode code="completed" /> <effectiveTime value="906758046976" /> <value xsi:type="ST" value="< pre><b>CBC W/DIFF</b> 06.23.9011.934.488.230.534.612.40404808668.31.08.79.1REVIEWED</pre>" /> <referenceRange> <observationRange> <text /> </observationRange> </referenceRange> </observation> </ component> </organizer> </entry> <entry> <organizer moodCode="EVN" classCode="BATTERY"> <templateId root="16.840.1.487439.05.20.22.4.1" /> <id nullFlavor="NA" /> <code codeSystem="local" code="METABC" displayName="METABOLIC PANEL, COMPREHN" /> <statusCode code="completed" /> <component> <observation moodCode="EVN" classCode="OBS"> < templateId root="09.16.840.1.645266.05.20.22.4.2" /> <id nullFlavor="NA " /> <code codeSystem="local" code="K" displayName="POTASSIUM" /> <statusCode code="completed" /> <effectiveTime value=" " /> <value unit="mmol/L" xsi:type="PQ" value="3.6" /> < referenceRange> <observationRange> <text>3.5-5.3</text> </observationRange> </referenceRange> </observation > </component> <component> <observation moodCode="EVN" classCode="OBS"> <templateId root="09.16.840.1.882132.05.20.22.4.2" /> <id nullFlavor="NA" /> <code codeSystem="local" code="eGFR" displayName="EST GFR (MDRD)" /> <statusCode code="completed" /> <effectiveTime value="" /> <value unit="mL/min" xsi:type ="PQ" value="> 60" /> <referenceRange> <observationRange > <text>> 59</text> </observationRange> </ referenceRange> </observation> </component> <component> <observation moodCode="EVN" classCode="OBS"> <templateId root= "216.840.1.290946.10..4.2" /> <id nullFlavor="NA" /> < code codeSystem="local" code="GAP" displayName="ANION GAP" /> < statusCode code="completed" /> <effectiveTime value="" /> <value unit="mmol/L" xsi:type="PQ" value="15" /> < referenceRange> <observationRange> <text>5-15</text> </observationRange> </referenceRange> </observation> </component> <component> <observation moodCode="EVN" classCode= "OBS"> <templateId root="216.840.1.935321.05.20.22.4.2" /> < id nullFlavor="NA" /> <code codeSystem="local" code="eCrCl" displayName ="EST CrCl (CG)" /> <statusCode code="completed" /> < effectiveTime value="" /> <value unit="mL/min" xsi:type="PQ " value="> 60" /> <referenceRange> <observationRange> <text>> 59</text> </observationRange> </ referenceRange> </observation> </component> <component> <observation moodCode="EVN" classCode="OBS"> <templateId root= "09.16.840.1.315451.10...4.2" /> <id nullFlavor="NA" /> < code codeSystem="local" code="GLU" displayName="GLUCOSE" /> < statusCode code="completed" /> <effectiveTime value="" /> <value unit="mg/dL" xsi:type="PQ" value="106" /> < interpretationCode codeSystem="local" code="*" /> <referenceRange> <observationRange> <text>70-99</text> </ observationRange> </referenceRange> </observation> </ component> <component> <observation moodCode="EVN" classCode="OBS"> <templateId root="09.16.840.1.274423.10.20.22.4.2" /> <id nullFlavor="NA" /> <code codeSystem="local" code="CA" displayName= "CALCIUM" /> <statusCode code="completed" /> <effectiveTime value="" /> <value unit="mg/dL" xsi:type="PQ" value="9.0" / > <referenceRange> <observationRange> <text>8.5 -10.1</text> </observationRange> </referenceRange> </ observation> </component> <component> <observation moodCode= "EVN" classCode="OBS"> <templateId root="840.1.174365.22.4.2 " /> <id nullFlavor="NA" /> <code codeSystem="local" code="BUN " displayName="BLOOD UREA NITROGEN" /> <statusCode code="completed" /> <effectiveTime value="" /> <value unit="mg/dL" xsi:type="PQ" value="7" /> <referenceRange> < observationRange> <text>7-20</text> </observationRange> </referenceRange> </observation> </component> < component> <observation moodCode="EVN" classCode="OBS"> < templateId root="09.16.840.1.729529.10.20.22.4.2" /> <id nullFlavor="NA " /> <code codeSystem="local" code="CREAT" displayName="CREATININE" /> <statusCode code="completed" /> <effectiveTime value= "" /> <value unit="mg/dL" xsi:type="PQ" value="0.8" /> <referenceRange> <observationRange> <text>0.6-1.0< /text> </observationRange> </referenceRange> </ observation> </component> <component> <observation moodCode= "EVN" classCode="OBS"> <templateId root="16.840.1.214215.05.20.22.4.2 " /> <id nullFlavor="NA" /> <code codeSystem="local" code="NA " displayName="SODIUM" /> <statusCode code="completed" /> < effectiveTime value="" /> <value unit="mmol/L" xsi:type="PQ " value="136" /> <referenceRange> <observationRange> <text>135-148</text> </observationRange> </ referenceRange> </observation> </component> <component> <observation moodCode="EVN" classCode="OBS"> <templateId root= "09.16.840.1.970164.05.20.22.4.2" /> <id nullFlavor="NA" /> < code codeSystem="local" code="CL" displayName="CHLORIDE" /> < statusCode code="completed" /> <effectiveTime value="" /> <value unit="mmol/L" xsi:type="PQ" value="100" /> < referenceRange> <observationRange> <text>98-110</text> </observationRange> </referenceRange> </observation> </component> <component> <observation moodCode="EVN" classCode ="OBS"> <templateId root="09.16.840.1.785976...4.2" /> < id nullFlavor="NA" /> <code codeSystem="local" code="AST" displayName= "AST/SGOT" /> <statusCode code="completed" /> <effectiveTime value="" /> <value unit="Units/L" xsi:type="PQ" value="34" /> <referenceRange> <observationRange> <text>10 -37</text> </observationRange> </referenceRange> </ observation> </component> <component> <observation moodCode= "EVN" classCode="OBS"> <templateId root="216.840.1.832420.10...4.2 " /> <id nullFlavor="NA" /> <code codeSystem="local" code="ALT " displayName="ALT/SGPT" /> <statusCode code="completed" /> < effectiveTime value="" /> <value unit="Units/L" xsi:type= "PQ" value="34" /> <referenceRange> <observationRange> <text>< 66</text> </observationRange> </ referenceRange> </observation> </component> <component> <observation moodCode="EVN" classCode="OBS"> <templateId root= "216.840.1.583876.10...4.2" /> <id nullFlavor="NA" /> < code codeSystem="local" code="CO2" displayName="CARBON DIOXIDE" /> < statusCode code="completed" /> <effectiveTime value="" /> <value unit="mmol/L" xsi:type="PQ" value="21" /> < referenceRange> <observationRange> <text>21-32</text> </observationRange> </referenceRange> </observation> </component> <component> <observation moodCode="EVN" classCode= "OBS"> <templateId root="216.840.1.566031.05.20.22.4.2" /> < id nullFlavor="NA" /> <code codeSystem="local" code="TP" displayName= "TOTAL PROTEIN" /> <statusCode code="completed" /> < effectiveTime value="" /> <value unit="gm/dL" xsi:type="PQ " value="7.7" /> <referenceRange> <observationRange> <text>6.4-8.2</text> </observationRange> </ referenceRange> </observation> </component> <component> <observation moodCode="EVN" classCode="OBS"> <templateId root= "09.16.840.1.179124.05.20.22.4.2" /> <id nullFlavor="NA" /> < code codeSystem="local" code="ALB" displayName="ALBUMIN" /> < statusCode code="completed" /> <effectiveTime value="" /> <value unit="gm/dL" xsi:type="PQ" value="3.2" /> < interpretationCode codeSystem="local" code="*" /> <referenceRange> <observationRange> <text>3.4-5.0</text> </ observationRange> </referenceRange> </observation> </ component> <component> <observation moodCode="EVN" classCode="OBS"> <templateId root="09.16.840.1.895453.05.20.22.4.2" /> <id nullFlavor="NA" /> <code codeSystem="local" code="BILTOT" displayName= "BILI TOTAL" /> <statusCode code="completed" /> < effectiveTime value="" /> <value unit="mg/dL" xsi:type="PQ " value="0.3" /> <referenceRange> <observationRange> <text>0.0-1.0</text> </observationRange> </ referenceRange> </observation> </component> <component> <observation moodCode="EVN" classCode="OBS"> <templateId root= "16.840.1.229416.05.20.22.4.2" /> <id nullFlavor="NA" /> < code codeSystem="local" code="ALKP" displayName="ALKALINE PHOSPHATASE TOTAL" /> <statusCode code="completed" /> <effectiveTime value= "093650849937" /> <value unit="IU/L" xsi:type="PQ" value="88" /> <referenceRange> <observationRange> <text>45-117</ text> </observationRange> </referenceRange> </ observation> </component> <component> <observation moodCode= "EVN" classCode="OBS"> <templateId root="09.16.840.1.298011.05.20.22.4.2 " /> <id nullFlavor="NA" /> <code codeSystem="local" code="MB " displayName="Microbiology" /> <statusCode code="completed" /> <effectiveTime value="" /> <value unit="" xsi:type="PQ" value="" /> <referenceRange> <observationRange> <text /> </observationRange> </referenceRange> </ observation> </component> </organizer> </entry> <entry> <organizer moodCode="EVN" classCode="BATTERY"> <templateId root= "16.840.1.942020.05.20.22.4.1" /> <id nullFlavor="NA" /> <code codeSystem="local" code="LIP" displayName="LIPASE" /> <statusCode code= "completed" /> <component> <observation moodCode="EVN" classCode= "OBS"> <templateId root="09.16.840.1.218781.05.20.22.4.2" /> < id nullFlavor="NA" /> <code codeSystem="local" code="LIP" displayName= "LIPASE" /> <statusCode code="completed" /> <effectiveTime value="030237730766" /> <value unit="Units/L" xsi:type="PQ" value="114 " /> <referenceRange> <observationRange> <text> 73-393</text> </observationRange> </referenceRange> < /observation> </component> </organizer> </entry> <entry> < organizer moodCode="EVN" classCode="BATTERY"> <templateId root= "09.16.840.1.297587.05.20.22.4.1" /> <id nullFlavor="NA" /> <code codeSystem="local" code="UA" displayName="URINALYSIS, ROUTINE" /> < statusCode code="completed" /> <component> <observation moodCode= "EVN" classCode="OBS"> <templateId root="16.840.1.650381....4.2 " /> <id nullFlavor="NA" /> <code codeSystem="local" code= "LEUESU" displayName="UA LEUKOCYTE ESTERASE DIPSTICK" /> <statusCode code="completed" /> <effectiveTime value="988630741208" /> < value unit="" xsi:type="PQ" value="1+" /> <interpretationCode codeSystem="local" code="*" /> <referenceRange> < observationRange> <text>NEGATIVE</text> </ observationRange> </referenceRange> </observation> </ component> <component> <observation moodCode="EVN" classCode="OBS"> <templateId root="16.840.1.396458.05.20.22.4.2" /> <id nullFlavor="NA" /> <code codeSystem="local" code="NITRIU" displayName= "UA NITRITE DIPSTICK" /> <statusCode code="completed" /> < effectiveTime value="317639844114" /> <value unit="" xsi:type="PQ" value="NEGATIVE" /> <referenceRange> <observationRange> <text>NEGATIVE</text> </observationRange> </ referenceRange> </observation> </component> <component> <observation moodCode="EVN" classCode="OBS"> <templateId root= "09.16.840.1.235652.10..22.4.2" /> <id nullFlavor="NA" /> < code codeSystem="local" code="PROTEIU" displayName="UA PROTEIN DIPSTICK" /> <statusCode code="completed" /> <effectiveTime value= "766561256347" /> <value unit="" xsi:type="PQ" value="NEGATIVE" /> <referenceRange> <observationRange> <text>NEGATIVE </text> </observationRange> </referenceRange> </ observation> </component> <component> <observation moodCode= "EVN" classCode="OBS"> <templateId root="09.16.840.1.745942.10.20.22.4.2 " /> <id nullFlavor="NA" /> <code codeSystem="local" code= "DGLUU" displayName="UA GLUCOSE DIPSTICK" /> <statusCode code= "completed" /> <effectiveTime value="142430707306" /> <value unit="" xsi:type="PQ" value="NEGATIVE" /> <referenceRange> < observationRange> <text>NEGATIVE</text> </ observationRange> </referenceRange> </observation> </ component> <component> <observation moodCode="EVN" classCode="OBS"> <templateId root="840.1.303466.10..22.4.2" /> <id nullFlavor="NA" /> <code codeSystem="local" code="KETONU" displayName= "UA KETONE DIPSTICK" /> <statusCode code="completed" /> < effectiveTime value="034539889353" /> <value unit="" xsi:type="PQ" value="NEGATIVE" /> <referenceRange> <observationRange> <text>NEGATIVE</text> </observationRange> </ referenceRange> </observation> </component> <component> <observation moodCode="EVN" classCode="OBS"> <templateId root= "216.840.1.553540...4.2" /> <id nullFlavor="NA" /> < code codeSystem="local" code="UROBILU" displayName="UA UROBILINOGEN DIPSTICK" / > <statusCode code="completed" /> <effectiveTime value= "111432104151" /> <value unit="" xsi:type="PQ" value="NORMAL" /> <referenceRange> <observationRange> <text>NORMAL</ text> </observationRange> </referenceRange> </ observation> </component> <component> <observation moodCode= "EVN" classCode="OBS"> <templateId root="216.840.1.219763..22.4.2 " /> <id nullFlavor="NA" /> <code codeSystem="local" code= "BILU" displayName="UA BILIRUBIN DIPSTICK" /> <statusCode code= "completed" /> <effectiveTime value="648554244755" /> <value unit="" xsi:type="PQ" value="NEGATIVE" /> <referenceRange> < observationRange> <text>NEGATIVE</text> </ observationRange> </referenceRange> </observation> </ component> <component> <observation moodCode="EVN" classCode="OBS"> <templateId root="16.840.1.969007.10..4.2" /> <id nullFlavor="NA" /> <code codeSystem="local" code="VIKAS" displayName="UA BLOOD DIPSTICK" /> <statusCode code="completed" /> < effectiveTime value="859829897325" /> <value unit="" xsi:type="PQ" value="1+" /> <interpretationCode codeSystem="local" code="*" /> <referenceRange> <observationRange> <text>NEGATIVE</ text> </observationRange> </referenceRange> </ observation> </component> <component> <observation moodCode= "EVN" classCode="OBS"> <templateId root="09.16.840.1.131730.05.20.22.4.2 " /> <id nullFlavor="NA" /> <code codeSystem="local" code= "SPGRU" displayName="UA SPECIFIC GRAVITY" /> <statusCode code= "completed" /> <effectiveTime value="091436777422" /> <value unit="" xsi:type="PQ" value="1.010" /> <interpretationCode codeSystem= "local" code="*" /> <referenceRange> <observationRange> <text>1.015-1.025</text> </observationRange> </ referenceRange> </observation> </component> <component> <observation moodCode="EVN" classCode="OBS"> <templateId root= "16.840.1.979444.05.20.22.4.2" /> <id nullFlavor="NA" /> < code codeSystem="local" code="GEOVANNA" displayName="UR PH" /> <statusCode code="completed" /> <effectiveTime value="295239179465" /> < value unit="" xsi:type="PQ" value="7.0" /> <referenceRange> <observationRange> <text>5.0-7.0</text> </ observationRange> </referenceRange> </observation> </ component> </organizer> </entry> <entry> <organizer moodCode="EVN" classCode="BATTERY"> <templateId root="09.16.840.1.102451.10..22.4.1" /> <id nullFlavor="NA" /> <code codeSystem="local" code="UAMICRO" displayName="UA MICROSCOPIC" /> <statusCode code="completed" /> < component> <observation moodCode="EVN" classCode="OBS"> < templateId root="16.840.1.186018.10..22.4.2" /> <id nullFlavor="NA " /> <code codeSystem="local" code="BACU" displayName="UA BACTERIA" /> <statusCode code="completed" /> <effectiveTime value= "455196060267" /> <value unit="" xsi:type="PQ" value="1+" /> < interpretationCode codeSystem="local" code="*" /> <referenceRange> <observationRange> <text>NEGATIVE</text> </ observationRange> </referenceRange> </observation> </ component> <component> <observation moodCode="EVN" classCode="OBS"> <templateId root="09.16.840.1.455392.10..22.4.2" /> <id nullFlavor="NA" /> <code codeSystem="local" code="EPIU" displayName=" UA EPITHELIAL CELLS" /> <statusCode code="completed" /> < effectiveTime value="890801083020" /> <value unit="epi/hpf" xsi:type= "PQ" value="2+" /> <interpretationCode codeSystem="local" code="*" /> <referenceRange> <observationRange> <text>0 - 1 +</text> </observationRange> </referenceRange> </ observation> </component> <component> <observation moodCode= "EVN" classCode="OBS"> <templateId root="216.840.1.953936.10.20.22.4.2 " /> <id nullFlavor="NA" /> <code codeSystem="local" code= "RBCU" displayName="UA RBC" /> <statusCode code="completed" /> <effectiveTime value="660939987726" /> <value unit="rbc/hpf" xsi:type ="PQ" value="5-10" /> <interpretationCode codeSystem="local" code="*" / > <referenceRange> <observationRange> <text>0 - 3</text> </observationRange> </referenceRange> </ observation> </component> <component> <observation moodCode= "EVN" classCode="OBS"> <templateId root="09.16.840.1.737320..22.4.2 " /> <id nullFlavor="NA" /> <code codeSystem="local" code= "UAVOL" displayName="UA VOLUME FOR EXAM" /> <statusCode code="completed " /> <effectiveTime value="793281372607" /> <value unit="mL" xsi:type="PQ" value="12.0" /> <referenceRange> < observationRange> <text>(12mL STD)</text> </ observationRange> </referenceRange> </observation> </ component> <component> <observation moodCode="EVN" classCode="OBS"> <templateId root="16.840.1.061892.10.20.22.4.2" /> <id nullFlavor="NA" /> <code codeSystem="local" code="WBCU" displayName=" UA WBC" /> <statusCode code="completed" /> <effectiveTime value="718945098335" /> <value unit="wbc/hpf" xsi:type="PQ" value="20- 50" /> <interpretationCode codeSystem="local" code="*" /> < referenceRange> <observationRange> <text>0 - 5</text> </observationRange> </referenceRange> </observation> </component> </organizer> </entry> <entry> <organizer moodCode="EVN " classCode="BATTERY"> <templateId root="216.840.1.521586.10..22.4.1" / > <id nullFlavor="NA" /> <code codeSystem="local" code="PREGU" displayName="UR TEST" /> <statusCode code="completed" /> < component> <observation moodCode="EVN" classCode="OBS"> < templateId root="216.840.1.174861.10..22.4.2" /> <id nullFlavor="NA " /> <code codeSystem="local" code="PREGU" displayName="UR TEST" /> <statusCode code="completed" /> <effectiveTime value= "679897457054" /> <value unit="" xsi:type="PQ" value="NEGATIVE" /> <referenceRange> <observationRange> <text>NEGATIVE </text> </observationRange> </referenceRange> </ observation> </component> </organizer> </entry> <entry> <organizer moodCode="EVN" classCode="BATTERY"> <templateId root= "216.840.1.813680.10.20.22.4.1" /> <id nullFlavor="NA" /> <code codeSystem="local" code="UC" displayName="URINE CULTURE" /> <statusCode code="completed" /> <component> <observation moodCode="EVN" classCode="OBS"> <templateId root="2.16.840.1.751027.10..4.2" /> <id nullFlavor="NA" /> <code codeSystem="local" code="MB" displayName="Microbiology" /> <statusCode code="completed" /> <effectiveTime value="878185044914" /> <value xsi:type="ST" value="<pre ><b>URINE CULTURE</b> See BelowURINE CULTURE(F) Dre Date/Time: 13:00 Jer Date/Time: 05/18/2015 07: 37SOURCE: URINESPEC DESC: CLEAN CATCHTREATMENT OF ASYMPTOMATIC BACTERIURIA IS NOT USUALLYCLINICALLY INDICATED.MIXED POS AND NEG?MIXED GRAM POSITIVE AND NEGATIVE BACTERIAROBIN VILLE [id number] [place] [address]</pre>" /> <referenceRange> <observationRange> <text /> </observationRange> </referenceRange> </observation> </component> </organizer> </entry> <entry> <organizer moodCode= "EVN" classCode="BATTERY"> <templateId root="216.840.1.248178.10..4.1 " /> <id nullFlavor="NA" /> <code codeSystem="local" code="GC" displayName="GONORRHOEA DNA BY PCR - CHLAMYDIA DNA BY PCR" /> <statusCode code="completed" /> <component> <observation moodCode="EVN" classCode="OBS"> <templateId root="2.16.840.1.978007.10..22.4.2" /> <id nullFlavor="NA" /> <code codeSystem="local" code="MB" displayName="Microbiology" /> <statusCode code="completed" /> <effectiveTime value="746930025179" /> <value xsi:type="ST" value="<pre ><b>GONORRHOEA DNA BY PCR - CHLAMYDIA DNA BY PCR</b> See BelowGONORRHOEA DNA BY PCR(F) Dre Date/Time: 05/16/2015 13:00 Jer Date/Time: 05/19/2015 09:18SOURCE: URINESPEC DESC: [address] [address]Rei BelowCHLAMYDIA DNA BY PCR(F) Dre Date/Time: 05/16/2015 13:00 Jer Date/Time: 05/19/2015 09:18SOURCE: URINESPEC DESC: [address] [address]</pre>" /> <referenceRange> < observationRange> <text /> </observationRange> </referenceRange> </observation> </component> </organizer> </ entry> <entry> <organizer moodCode="EVN" classCode="BATTERY"> < templateId root="2.16.840.1.002345.10.20.22.4.1" /> <id nullFlavor="NA" /> <code codeSystem="local" code="WET" displayName="WET MOUNT" /> < statusCode code="completed" /> <component> <observation moodCode= "EVN" classCode="OBS"> <templateId root="2.16.840.1.503528.10.20.22.4.2 " /> <id nullFlavor="NA" /> <code codeSystem="local" code="MB " displayName="Microbiology" /> <statusCode code="completed" /> <effectiveTime value="487960816219" /> <value xsi:type="ST" value="< pre><b>WET MOUNT</b> See BelowWET MOUNT(F) Dre Date/Time: 13:20 Jer Date/Time: 05/16/2015 13: 54SOURCE: VAGINALSPEC DESC: CLUE CELLS (Abnormal)MODERATE CLUE CELLS PRESENT (Abnormal)TRICHOMONASNO TRICHOMONAS SEENYEASTNO [facility]AST [facility] ED [id number] [address]</pre>" /> < referenceRange> <observationRange> <text /> < /observationRange> </referenceRange> </observation> </ component> </organizer> </entry> <entry> <organizer moodCode="EVN" classCode="BATTERY"> <templateId root="2.16.840.1.806150.10.20.22.4.1" /> <id nullFlavor="NA" /> <code codeSystem="local" code="GRAM" displayName="GRAM STAIN - CHLAMYDIA DNA BY PCR" /> <statusCode code= "completed" /> <component> <observation moodCode="EVN" classCode= "OBS"> <templateId root="2.16.840.1.235891.10.20.22.4.2" /> < id nullFlavor="NA" /> <code codeSystem="local" code="MB" displayName= "Microbiology" /> <statusCode code="completed" /> < effectiveTime value="530883040153" /> <value xsi:type="ST" value="<pre> <b>GRAM STAIN</b> See BelowGRAM STAIN(F) Dre Date/Time: 2014 13:20 Jer Date/Time: 05/16/2015 13:57SOURCE : VAGINALSPEC DESC: GRAM STAINNO ORGANISMS SEEN RESEMBLING NEISSERIA GONORRHOEAEGRAM VARIABLE BACILLI RESEMBLING [facility] ED [id number] [address]</pre>" /> <referenceRange> <observationRange> <text /> </observationRange> </referenceRange> </observation> </component> </organizer> </entry></section> Encounters ACCT No. Visit Date/Time Discharge Status Pt. Type Provider Facility Loc./Unit Complaint [id number] 06/22/2010 16:31:00 06/22/2010 23:59:59 CLS Outpatient [id number] 01/18/2014 10:50:00 01/19/2014 16:01:00 DIS Outpatient [id number] 01/11/2014 10:45:00 01/11/2014 23:59:59 CLS Outpatient [id number] 08/29/2013 14:00:00 08/29/2013 16:37:00 DIS Emergency [id number] 10/23/2016 20:24:00 10/23/2016 21:30:00 DIS Emergency [facility] BLUNT, [facility] W.EDW [id number] 07/08/2016 18:08:00 07/08/2016 18:22:00 DIS Emergency [id number] 12/07/2015 17:39:00 12/07/2015 18:49:00 DIS Emergency Kathie LIVINGSTON, Milo nKight [facility] W.EDW [id number] 05/16/2015 12:51:00 05/16/2015 14:27:00 DIS Emergency Radhika BLUNT, Ghanshyam Heredia [facility] W.EDW [id number] 05/02/2015 03:02:00 05/02/2015 04:20:00 DIS Emergency Sherlyn LIVINGSTON, Quoc [facility] W.EDW [id number] 04/30/2015 11:10:00 04/30/2015 12:37:00 DIS Emergency Samuel LIVINGSTON, Raul Resendiz [facility] W.EDW
--- OUTSIDE RECORDS SUMMARY | 2017-10-09 10:00 | XMS REPORT | Referral Summary ---
Author Author [facility] Organization [facility] Address Unknown Phone Unavailable Care Team Providers Care Unloader Operator Name Role Phone No PCP, Pt States PCP Encounter VC Date(s): 10/13/16 - 10/13/16 [facility] [address] [place] [address] [facility] Discharge Diagnosis: Depression Discharge Diagnosis: Anxiety Discharge Disposition: 01-Home or Self Care Attending Physician: Provider, Immediate Care Attending Physician: Reyes Barnes MD Admitting Physician: Provider, Immediate Care Vital Signs Most recent to 1 oldest [Reference Range]: Temperature Oral 36.4 degC [35.8-37.3 degC] (10/13/16 5:24 PM) Peripheral Pulse 85 bpm Rate [60-100 bpm] (10/13/16 5:24 PM) Blood Pressure 122/60 mmHg [90-140/60-90 mmHg] (10/13/16 5:24 PM) SpO2 98 % (10/13/16 5:24 PM) Problem List Condition Effective Dates Status Health Status Informant Obesity(Confirmed) Active patient Allergies, Adverse Reactions, Alerts No Known Medication Allergies Medications predniSONE Oral, Daily, 0 Refill(s) Start Date: 07/10/16 Status: Ordered ProAir RespiClick puffs, Inhalation, q4hr, 0 Refill(s) Start Date: 07/10/16 Status: Ordered Zofran ODT 4 mg oral tablet, disintegrating 4 mg 1 tabs, Oral, q6hr, Nausea or Vomiting | as needed for nausea/vomiting, # 10 tabs, 0 Refill(s), Pharmacy: [facility] [id number], 1 tabs Oral q6hr,PRN :Nausea or Vomiting | as needed for nausea/vomiting Start Date: 07/10/16 Status: Ordered Results No data available for this section Immunizations No data available for this section Procedures No data available for this section Social History Social History Type Response Smoking Status Current every day smoker Assessment and Plan Extracted from: Title: Office Visit Note Author: Reyes Barnes MD Date: 10/13/16 Assessment/Plan Anxiety Ordered: Office Visit Level 3 Est 63358 Depression [facility] was advised that [facility] are open 24 hours per day. She was given printed information on the location andcrisis line number to call. She states that she will try to go tomorrowbecause her boyfriend was not being verycooperative withtransporting her. The patient was advised that we cannot prescribe any medications for anxiety or depressionsince she is currently having suicidal ideations. She voiced understanding. Ordered: Office Visit Level 3 Est 98246"
== END 2017-10-08 15:52 | disposition home or self-care (01) ==
LOC: EDUNIT# 12:12 → ER 12:14
DX: N39.0 Urinary tract infection, site not specified (principal); J45.909 Unspecified asthma, uncomplicated; F60.9 Personality disorder, unspecified; F12.90 Cannabis use, unspecified, uncomplicated; Z98.51 Tubal ligation status; Z87.42 Personal history of other diseases of the female genital tract; Z90.710 Acquired absence of both cervix and uterus
CPT/HCPCS: 36415; 74018; 80053; 81000; 85025; 87077; 87088; 87186